=== PATIENT | female | born 1950 | race Two or more races ===

== ENCOUNTER 2025-02-04 05:30 | Day surgery (SDC) | payer OTHER ==
[2025-01-29 11:52] VITALS: BP 147/75
[~2025-02-04] VITALS: Ht 154.9 cm; Wt 78.5 kg
[~2025-02-04 05:30] MED LIST: DILTIAZEM ER240 M1 PO; FOLIC ACID0.8 M1 PO; GLIPIZIDE XL5 MG PO; HORIZANT300 MG PO; HYDROCHLOROTHIA25 MG PO; LIPITOR40 MG PO; MELOXICAM7.5 MG PO; METFORMIN HCL1000 M2 PO; PLAVIX75 MG PO; ZESTRIL30 MG PO
[2025-02-04] MEDS ORDERED: POVIDONE-IODINE 118 ML BOTT TOP ONE (07:45)
[2025-02-04] MEDS ORDERED: METRONIDAZOLE/SODIUM CHLORIDE 500 MG/100 ML PIGGYBACK IV ONE (07:45)
[2025-02-04] MEDS ORDERED: DIBUCAINE 30 GM TUBE RECTAL ONE (07:45)
[2025-02-04] MEDS ORDERED: LIDOCAINE HCL 1%/EPINEPHRINE 20ML VIAL IJ ONE (07:45)
[2025-02-04] MEDS ORDERED: CEFTRIAXONE SODIUM 2,000 MG VIAL IV ONE (07:45)
[2025-02-04] MEDS ORDERED: BUPIVACAINE HCL 30 ML VIAL IJ ONE (07:45)
[2025-02-04] MEDS ORDERED: HEMOSTATIC MATRIX 1 KIT KIT TOP ONE (07:45)
[2025-02-04] MEDS ORDERED: TRAM1TAB98 PO (08:25)
[2025-02-04] MEDS ORDERED: RECTICARE30 GM TOP (08:26)
== END 2025-02-04 13:20 | disposition home or self-care (01) ==
LOC: CIR.AMB 05:30
PROVIDERS: ATTEND Surgery
DX: D12.9 Benign neoplasm of anus and anal canal (principal); K62.1 Rectal polyp; Z88.5 Allergy status to narcotic agent